=== PATIENT | male | born 1975 | race Asian ===

== ENCOUNTER → 2017-03-15 | Outpatient (CLI) | payer OTHER ==
[~2017-03-15] MED LIST: AMLO-511 PO; CLON0.1T PO; FOLI1 PO; LEVE500T53 PO; OXYB5 PO; PANT40TA25 PO; PRED10 PO; PRED20 PO; PRED5TAB PO; TAMS0.4C32 PO; VITAD1000 PO
== END | disposition home or self-care (01) ==
LOC: RADPV 10:29
PROVIDERS: ATTEND Internal Medicine Nephrology
DX: N18.4 Chronic kidney disease, stage 4 (severe) (principal); N27.0 Small kidney, unilateral
CPT/HCPCS: 76770

== ENCOUNTER 2017-04-07 07:30 | Day surgery (SDC) | payer OTHER ==
[~2017-04-07] VITALS: Ht 170.2 cm; Wt 57.7 kg
[~2017-04-07 07:30] MED LIST changes: -CLON0.1T PO; -OXYB5 PO; -PANT40TA25 PO; -PRED10 PO; -PRED20 PO; +SODIUM CHLORIDE 0.9% 1,000 ML IV ONE
[2017-04-07] MEDS ORDERED: NALOXONE HCL 0.4 MG/ML VIAL ONE (08:35)
[2017-04-07] MEDS ORDERED: MIDAZOLAM HCL 2 MG/2 ML VIAL ONE (08:35)
[2017-04-07] MEDS ORDERED: LIDOCAINE HCL/PF 1% 30 ML VIAL ONE (08:35)
[2017-04-07] MEDS ORDERED: FLUMAZENIL 0.1 MG/ML 5 ML VIAL IVP ONE (08:35)
[2017-04-07] MEDS ORDERED: FentaNYL CITRATE-PF 100 MCG/2 ML VIAL ONE (08:35)
[2017-04-07] MEDS ORDERED: MIDAZOLAM HCL 2 MG/2 ML VIAL IM ONE (09:16)
[2017-04-07] MEDS ORDERED: FentaNYL CITRATE-PF 100 MCG/2 ML VIAL IVP ONE (09:16)
[2017-04-07] MEDS ORDERED: GELATIN SPONGE,ABSORBABLE 12-7 MM TP ONE (09:20)
[2017-04-07] MEDS ORDERED: PRED10 PO (12:49)
== END 2017-04-07 12:50 | disposition home or self-care (01) ==
LOC: SDS 07:30 → EDSTATUS 09:00 → SDS 12:50
PROVIDERS: ATTEND Internal Medicine Nephrology
DX: I12.9 Hypertensive chronic kidney disease with stage 1 through stage 4 chronic kidney disease, or unspecified chronic kidney disease (principal); N18.4 Chronic kidney disease, stage 4 (severe); N13.30 Unspecified hydronephrosis; Z98.890 Other specified postprocedural states; Z86.19 Personal history of other infectious and parasitic diseases; Z86.79 Personal history of other diseases of the circulatory system; Z86.73 Personal history of transient ischemic attack (TIA), and cerebral infarction without residual deficits
CPT/HCPCS: 50200; 77012; 88300; J2250; J3010; J7030; J2310; J3490